=== PATIENT | female | born 1960 | race Caucasian/White ===

== ENCOUNTER 2021-03-28 19:38 | Emergency (ER) | payer MEDICARE, OTHER ==
[~2021-03-28] VITALS: Ht 157.5 cm; Wt 72.7 kg
[2021-03-28] MEDS ORDERED: IBUP-2071 PO (19:47)
[2021-03-28] MEDS ORDERED: ATEN-73 PO (19:47)
[2021-03-28] MEDS ORDERED: OxyCODONE HCL 5 MG IR TABLET PO ONE (21:00)
[2021-03-28] MEDS ORDERED: KETOROLAC TROMETHAMINE 30 MG/ML VIAL IM ONE (21:00)
[2021-03-28 22:15] VITALS: BP 132/74
== END 2021-03-28 22:15 | disposition home or self-care (01) ==
LOC: EMS 19:44
DX: S60.212A Contusion of left wrist, initial encounter (principal); M25.532 Pain in left wrist; I10 Essential (primary) hypertension; Z88.0 Allergy status to penicillin; Z88.6 Allergy status to analgesic agent; Z79.899 Other long term (current) drug therapy; W18.39XA Other fall on same level, initial encounter; Y93.89 Activity, other specified; Y92.89 Other specified places as the place of occurrence of the external cause; Y99.8 Other external cause status
CPT/HCPCS: 73030; 73060; 73070; 73110; 73120; 96372; 99284; J1885